=== PATIENT | male | born 1965 | race Caucasian/White ===

== ENCOUNTER 2018-08-01 08:12 | Emergency (ER) | payer MEDICAID ==
[~2018-08-01] VITALS: Ht 175.3 cm; Wt 86.5 kg
[~2018-08-01 08:12] MED LIST: ALBU8HFA PO; NO HOME MEDS; PRED20TA PO
[2018-08-01] MEDS ORDERED: LEVO500T89 PO (08:51)
[2018-08-01] MEDS ORDERED: INHA1INH2 INH (08:51)
[2018-08-01] MEDS ORDERED: ipratropium/albuterol 3ml nebule NEB ONE (08:55)
[2018-08-01 09:47] VITALS: BP 147/94
== END 2018-08-01 09:36 | disposition home or self-care (01) ==
LOC: ER 08:13
DX: J18.9 Pneumonia, unspecified organism (principal); J98.01 Acute bronchospasm; I10 Essential (primary) hypertension; F17.200 Nicotine dependence, unspecified, uncomplicated
CPT/HCPCS: 94640; 94760; 99283

== ENCOUNTER 2022-12-05 18:16 | Emergency (ER) | payer MEDICAID ==
[~2022-12-05] VITALS: Ht 175.3 cm; Wt 84.1 kg
[~2022-12-05 18:16] MED LIST changes: -ALBU8HFA PO; +INHA1INH2 INH; -PRED20TA PO
[2022-12-05 19:09] VITALS: BP 135/90
== END 2022-12-06 03:08 | disposition left against medical advice (07) ==
LOC: ER 18:18
DX: R07.89 Other chest pain (principal); Z53.21 Procedure and treatment not carried out due to patient leaving prior to being seen by health care provider
CPT/HCPCS: 71045